=== PATIENT | male | born 1980 | race Two or more races ===

== ENCOUNTER 2020-05-26 11:16 | Outpatient (REF) | payer BC, SELFPAY ==
--- NOTE | 2020-05-26 12:47 | XR_ITS ---
EXAMINATION: CHEST X-RAY CLINICAL INFORMATION: Cough COMPARISON: None TECHNIQUE: Two-view chest FINDINGS: The cardiac and mediastinal contours are normal. The lungs are clear. There is no pleural effusion or pneumothorax. Bony structures are unremarkable. XR/XR chest 2V IMPRESSION: Unremarkable exam. EXAMINATION: Lumbar spine x-ray CLINICAL INFORMATION: Low back pain COMPARISON: None. TECHNIQUE: 5 views of the lumbar spine including bilateral oblique views FINDINGS: Bone alignment is normal. No fracture or dislocation is seen. Disc spaces are normal. There is lower lumbar spine facet arthritis. No pars defect is seen. IMPRESSION: Lower lumbar spine facet arthritis.
--- NOTE | 2020-05-26 12:49 | XR_ITS ---
EXAMINATION: CHEST X-RAY CLINICAL INFORMATION: Cough COMPARISON: None TECHNIQUE: Two-view chest FINDINGS: The cardiac and mediastinal contours are normal. The lungs are clear. There is no pleural effusion or pneumothorax. Bony structures are unremarkable. XR/XR lumbar spine 4V min IMPRESSION: Unremarkable exam. EXAMINATION: Lumbar spine x-ray CLINICAL INFORMATION: Low back pain COMPARISON: None. TECHNIQUE: 5 views of the lumbar spine including bilateral oblique views FINDINGS: Bone alignment is normal. No fracture or dislocation is seen. Disc spaces are normal. There is lower lumbar spine facet arthritis. No pars defect is seen. IMPRESSION: Lower lumbar spine facet arthritis.
== END 2020-05-26 11:17 | disposition home or self-care (01) ==
LOC: HO.XRAY 11:16
PROVIDERS: Absent Provider Internal Medicine; PCP Internal Medicine; Referring Provider Internal Medicine; Visit Provider Internal Medicine
DX: R05 Cough (principal); J45.909 Unspecified asthma, uncomplicated; M54.5 Low back pain; G47.33 Obstructive sleep apnea (adult) (pediatric)
CPT/HCPCS: 71046; 72110

== ENCOUNTER → 2020-06-04 13:51 | Outpatient (REF) | payer BC, SELFPAY | LOC: HO.SL 13:51 | PROVIDERS: PCP Internal Medicine; Visit Provider Internal Medicine | DX: G47.33 Obstructive sleep apnea (adult) (pediatric) (principal) | CPT/HCPCS: 95806 ==

== ENCOUNTER 2020-06-05 15:01 | Outpatient (REF) | payer BC, SELFPAY ==
--- NOTE | 2020-06-05 13:15 | PFT_ITS ---
Forced vital capacity is normal. FEV1 is slightly reduced. KDT84-10 and MVV are moderately reduced. Post bronchodilator therapy, there is a small, but significant improvement in FEV1, SSG71-10, and MVV. Total lung capacity normal. Residual volume slightly increased. Diffusion capacity normal. CONCLUSION: Poap-uc-pczmwsre degree of obstructive airway disorder. Good response to bronchodilator therapy indicates mild bronchial asthma. Clinical correlation recommended. MD RIKKI Llanos/GERMAN / [id number]
== END 2020-06-05 15:02 | disposition home or self-care (01) ==
LOC: HO.RESP 15:01
PROVIDERS: PCP Internal Medicine; Visit Provider Internal Medicine
DX: J45.909 Unspecified asthma, uncomplicated (principal); R05 Cough
CPT/HCPCS: 94060; 94727; 94729

== ENCOUNTER → 2020-07-06 14:34 | Outpatient (BNVA) | payer BC, SELFPAY | PROVIDERS: PCP Internal Medicine; Visit Provider Internal Medicine | DX: Z76.89 Persons encountering health services in other specified circumstances (principal) ==

== ENCOUNTER 2022-04-16 08:54 | Outpatient (REF) | payer BC, SELFPAY ==
[2022-04-16 09:57] LABS: Alanine Aminotransferase 47 U/L (0-40); Albumin Level 4.4 g/dL (3.5-5.0); Alkaline Phosphatase 84 U/L (39-117); Aspartate Amino Transferase 24 U/L (5-37); Bilirubin Direct 0.2 mg/dL (0.0-0.5); Bilirubin Total 0.4 mg/dL (0.0-1.0); Total Protein 6.8 g/dL (6.5-8.0)
== END 2022-04-16 08:55 | disposition home or self-care (01) ==
LOC: HO.LAB 08:54
PROVIDERS: PCP Internal Medicine; Visit Provider Internal Medicine
DX: K76.0 Fatty (change of) liver, not elsewhere classified (principal); A04.8 Other specified bacterial intestinal infections
CPT/HCPCS: 36415; 80076; 87338

== ENCOUNTER 2023-08-28 15:41 | Outpatient (AMB) | payer BC, SELFPAY ==
[2023-08-28 15:48] VITALS: BP 112/78; PULSE 72; O2SAT 98; BMI 38.2
--- NOTE | 2023-08-28 15:48 | A.OFFVIS_ITS ---
Intake Vital Signs 08/28/23 15:48 Height 5 ft 11 in Weight 274 lb BMI 38.2 BP 112/78 Blood Pressure Location Lt brachial Position Sitting Pulse 72 Pulse Source Pulse Oximeter Pulse Oximetry (%) 98 Oxygen Delivery Method Room Air Intake Visit Reasons: asthma Intake Note: pt is here for follow up and doing well, needs refills sent in. 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 and albuterol just as needed. He claims that his asthma is well controlled, only occasional bouts of cough or wheezing, and that is when he has to use albuterol. The other problem is that he has put on some weight. In 2020 he had a home-based sleep study which showed only mild obstructive sleep apnea with total sleep time AHI 13. He had opted to treated with conservative measures including, weight reduction, and sleeping in lateral position. Initially he did lose significant weight and was feeling fine. During the past 1 year he has gained weight . But he still denies symptoms of obstructive sleep apnea. [facility] Medical History (Updated 08/28/23 @ 16:13 by Isi Dan MD) Obesity (BMI 30-39.9) GENNA (obstructive sleep apnea) Acute back pain Cough Asthma Social History Years Smoked: 12 years Review of Systems Const All systems reviewed & are unremarkable except as noted in HPI and below and Other (poor sleep ) ENT Denies nasal congestion and Denies nasal discharge Card Denies chest pain and Denies dyspnea on exertion Resp Denies cough, Denies dyspnea on exertion and Denies wheezing Musc Reports back pain (After driving long distance) Skin/Breast Reports system reviewed and no additional complaints, except as documented Neuro Reports no additional complaints Psych Reports no additional complaints Patrick/Lymph Reports no additional complaints Aller/Immun Reports no additional complaints and Denies wheezing Physical Exam Vital Signs: Last Vital Signs Pulse 72 08/28/23 15:48 BP 112/78 08/28/23 15:48 Pulse Ox 98 08/28/23 15:48 Oxygen Delivery Method Room Air 08/28/23 15:48 BMI result Body Mass Index 38.2 Const General: healthy appearing (modertaely overweight), comfortable, no acute distress, alert and awake Orientation/consciousness: patient oriented x3 HEENT Head: Yes normal to inspection General nose exam: No nasal polyps present and No nasal discharge present Face and sinus: Yes sinuses nontender Mouth: oropharynx normal Throat: Yes posterior oropharynx normal Eyes General: appearance normal, both eyes and all related structures Neck Neck: Yes normal visual inspection, Yes no lymphadenopathy, Yes trachea midline and Yes no JVD Thyroid: Thyroid normal Chest Chest palpation & inspection: normal inspection of the chest, normal palpation of entire chest wall and no tenderness Resp Effort & Inspection: normal respiratory effort Auscultation: clear to auscultation bilaterally, no crackles, no rhonchi and no wheezes Cardio Palpation: normal PMI Rate: regular rate Rhythm: regular rhythm Heart sounds: no gallops and no murmurs Peripheral pulses: Peripheral pulses 2+ throughout GI Palpation (GI): Soft to palpation, nontender, No hepatosplenomegaly present and no masses Auscultation: normal bowel sounds Back/Spine/Pelvis Thoracic/Lumbar Spine: thoracic and lumbar spine normal to inspection Skin General skin exam: no rashes or lesions noted Neuro General: patient oriented x3 and no focal motor deficits Cranial nerves: Yes CN's II-XII intact bilaterally Extrem General: Yes normal to inspection, Yes no clubbing, cyanosis or edema, Yes no calf tenderness and No venous stasis dermatitis Psych Appearance: grossly normal Speech and movement: Normal speech and movement present Assessment & Plan Assessment & Plan (1) Asthma: Comment: As per pulmonary function test he does have evidence of bronchial asthma, but mild. He did have to use Flovent as a controller agent, And he uses albuterol only once in a while. Code(s): J45.909 - Unspecified asthma, uncomplicated Plan: Advised to keep on using Flovent-1102 puffs b.i.d., or an equivalent agent, as Flovent is not available. Use albuterol HFA 2 puffs Q 4-6 hours only p.r.n.. (2) Obesity (BMI 30-39.9): Comment: Patient has gained about 30 lb of weight since last year, he is grossly. Obese at this time. But he denies symptoms of obstructive sleep apnea. Code(s): E66.9 - Obesity, unspecified Plan: Had a long discussion about the weight issue. He is fully determined to lose weight. I will check him back in 3-4 months to make sure that he is making good progress. (3) GENNA (obstructive sleep apnea): Comment: Home sleep study on 06/04/2020 did confirm that he has obstructive sleep apnea with total sleep time AHI 13 (mild ) Patient had opted to treat by conservative measures. As per his last visit 1 year ago he had lost. 18 lb of weight Unfortunately during the past 1 year he has gained weight again. Still denies symptoms of sleep apnea. Code(s): G47.33 - Obstructive sleep apnea (adult) (pediatric) Plan: I have given him a challenge of losing weight and he would come back in about 3- 4 months to to show the progress. Coding Level of Care Code Est Pt Level 3 (72136) Diagnoses Asthma J45.909 Obesity (BMI 30-39.9) E66.9 GENNA (obstructive sleep apnea) G47.33
== END 2023-08-28 16:07 | disposition home or self-care (01) ==
PROVIDERS: PCP Internal Medicine; Visit Provider Internal Medicine
DX: J45.909 Unspecified asthma, uncomplicated (principal); E66.9 Obesity, unspecified; G47.33 Obstructive sleep apnea (adult) (pediatric)
CPT/HCPCS: 99213

== ENCOUNTER → 2023-08-28 15:41 | Outpatient (BNVA) | payer BC, SELFPAY | PROVIDERS: PCP Internal Medicine; Visit Provider Internal Medicine ==

== ENCOUNTER 2024-06-05 09:11 | Outpatient (REF) | payer BC, SELFPAY ==
[2024-06-05 10:52] LABS: MANUAL DIFF FLAG NO
[2024-06-05 11:00] LABS: Basophils Percent Auto 0.6 % (0-2); Eosinophils Absolute Auto 0.3 X10*3/uL (0.0-0.4); Eosinophils Percent Auto 5.1 % (0-4); Hematocrit 48.4 % (42.0-52.0); Hemoglobin 15.7 g/dl (14.0-18.0); Imm Gran Abs Auto 0.03 X10*3/uL (0.00-0.03); Imm Gran Pct Auto 0.6 % (0.0-0.4); Lymphocytes Absolute Auto 1.6 X10*3/uL (1.2-4.9); Lymphocytes Percent Auto 30.3 % (20-40); Mean Corpuscular HGB Conc 32.4 g/dl (31.0-36.0); Mean Corpuscular Hemoglobin 26.9 pg (27.0-33.0); Monocytes Absolute Auto 0.4 X10*3/uL (0.1-1.2); Monocytes Percent Auto 8.3 % (2-11); Neutrophils Absolute Auto 2.9 x10*3/uL (2.0-8.3); Neutrophils Percent Auto 55.1 % (45-73); Platelet Count 216 X10*3/uL (160-400); Red Blood Count 5.83 X10*6/uL (4.60-5.80); Red Cell Distribution Width 12.6 % (11.0-16.0); White Blood Count 5.3 X10*3/uL (4.8-10.8)
[2024-06-05 11:14] LABS: Estimated Average Glucose 114 mg/dL; Hemoglobin A1C 157.2941 umol/L; Hemoglobin A1c % 5.6 % (<6.0); Total Hemoglobin (HGBA1C) 4125.5484 umol/L
[2024-06-05 11:24] LABS: Alanine Aminotransferase 31 U/L (0-40); Albumin Level 4.3 g/dL (3.5-5.0); Alkaline Phosphatase 74 U/L (39-117); Anion Gap 12 (12-20); Aspartate Amino Transferase 20 U/L (5-37); Bilirubin Total 0.4 mg/dL (0.0-1.0); Blood Urea Nitrogen 14 mg/dL (9-16); Calcium 9.2 mg/dL (8.4-10.2); Carbon Dioxide 31 mmol/L (22-29); Chloride 102 mmol/L (96-108); Cholesterol 177 mg/dL (<200); Estimated Glomerular Filt Rate > 60; Glucose Random 109 mg/dL (60-115); HDL Cholesterol 49 mg/dL (>40); LDL Cholesterol Calculated 107 mg/dL (<100); Potassium 4.4 mmol/L (3.3-5.1); Sodium 141 mmol/L (135-145); Total Protein 7.1 g/dL (6.5-8.0); Triglycerides 106 mg/dL (<150)
[2024-06-05 11:49] LABS: TSH reflex Free T4 0.92 uIU/mL (0.32-4.0); Vitamin D 25-OH Total 33.4 ng/mL (>30)
[2024-06-05 12:13] LABS: HIV AB/AG Nonreactive (Nonreactive); HIV Num 1 0.06 S/CO (0.00-0.99); ~HepC Num1 0.12 S/CO (0.00-0.79); ~Hepatitis C Antibody Nonreactive (Nonreactive)
== END 2024-06-05 09:12 | disposition home or self-care (01) ==
LOC: HO.HHCL 09:11
PROVIDERS: Visit Provider Internal Medicine
DX: Z00.00 Encounter for general adult medical examination without abnormal findings (principal); Z13.6 Encounter for screening for cardiovascular disorders; Z13.1 Encounter for screening for diabetes mellitus
CPT/HCPCS: 36415; 80053; 80061; 82306; 83036; 84443; 85025; 86803; 87389

== ENCOUNTER 2025-03-12 13:04 | Outpatient (REF) | payer MEDICAID, SELFPAY ==
--- OUTSIDE RECORDS SUMMARY | 2025-03-12 13:58 | XMS_ITS | Clinical Summary ---
Author Organization [facility] Address [address] [place] [address] Care Team Providers Care Packaging Supervisor Name Role Phone Ulises Platt Primary Care Provider [phone] Source Comments PLEASE NOTE, if this patient is a minor, it may be UNLAWFUL to discuss sensitive information that is contained in these records (such as FAMILY PLANNING, MENTAL HEALTH or SUBSTANCE ABUSE) with the minor patient's parent or other person without the patient's specific authorization.[facility] Allergies No known active allergies Medications spacerIndications :Expiratory wheezing Dx: 786.07. For use with albuterol inhaler 1 Inhaler 0 5 Active OPTICHAMBER FRANCI damaso 0 5 Active COMP.STOCKING,KNE E,LONG,LARGE (COMPRESSION STOCKING)Indicati ons:Varicose veins Dx:454.9 Wear daily for varicose veins. indefinite need 2 Each 2 5 Active sodium chloride (OCEAN) 0.65 % nasal sprayIndications: Expiratory wheezing,Common cold Place 1 Kirby into the nostril(s) as needed for congestion. 60 mL 6 5 Active fluticasone (FLOVENT HFA) 110 mcg/actuation inhalerIndication s:Mild persistent asthma without complication ([facility]) Inhale 2 Puffs into the lungs 2 (two) times daily. 1 Inhaler 5 6 Active albuterol sulfate hfa 90 mcg/actuation inhaler Inhale 2 Puffs into the lungs every 4 (four) hours as needed for shortness of breath or wheezing. 18 g 0 6 Active albuterol sulfate 90 mcg/actuation inhaler Active fluticasone propionate (FLOVENT DISKUS) 100 mcg/actuation diskus inhaler Activ e Active Problems Problem Noted Date Diagnosed Date Chronic pain of left knee 11/17/2014 Overview (10/08/2018): Tramatic injury 2017 - Closely followed by [facility] Chronic left hip pain 11/17/2014 [address]hma ([facility]) 10/14/2014 Family History Medical History Relation Name Comments Diabetes Father Hypertension Mother Relation Name Status Comments Father Mother Social History Tobacco Use Types Packs/Day Years Used Date Smoking Tobacco: Former Cigarettes 0.5 5 Smokeless Tobacco: Former Quit: 04/23/2015 Tobacco Cessation:Ready to Q uit: Yes; Counseling Given: Yes Alcohol Use Standard Drinks/Week Comments No 0 (1 standard drink = 0.6 oz pur e alcohol) Occassionally Social Connections Answer Date Recorded Social Connections and Isolation 0 03/17/2019 Financial Resource Strain Answer Date R ecorded Financial Resource Strain 0 2018 Stress Answer Date Recorded Stress 0 03/17/2019 Physical Activity Answer Date Recorded Physical Activity 0 03/17/2019 Food Insecurity Answer Date Recorded Food 0 03/17/2019 Transportation Needs Answer Date Record ed Transportation 0 03/17/2019 Housing Stability Answer Date Recorded Housing 0 03/17/2019 Safety and Environment Answer Date Shiva rded Safety 0 03/17/2019 Utilities Answer Date Recorded Utilities 0 03/17/2019 Employment Answer Date Recorded Employment 0 03/17/2019 Sex and Gender Information Value Date Recorded Sex Assigned at Not on file Legal Sex Male 6:06 AM PDT Gender Identity Not on file Sexual Orientation Not on file 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 on file Not on file Not on file Last Filed Vital Signs Vital Sign Reading Time Taken Comments Blood Pressure 118/80 05/03/2016 4:33 PM EDT Pulse 80 05/03/2016 4:33 PM EDT Temperature 37.2 C (98.9 F) 05/03/2016 4:33 PM EDT Respiratory Rate 16 05/03/2016 4:33 PM EDT Oxygen Saturation - - Inhaled Oxygen Concentration - - Weight 112.5 kg (248 lb) 05/03/2016 4:33 PM EDT Height 180.3 cm (5' 11 ) 07/04/2015 12:45 PM EST Body Mass Index 34.59 07/04/2015 12:45 PM EST Plan of Treatment Health Maintenance Due Date Last Done Comments Anxiety Screening 1980 Hepatitis C Screening 1980 Tobacco Screening 1980 HIV Screening 1995 Imm-DTaP/Tdap/Td (1 - Tdap) 1999 Imm-Hepatitis B (1 of 3 - 19 + 3-dose series) 1999 Imm-Pneumococcal (1 of 2 - PCV) 1999 Hypertension Screening (#1) 05/03/2017 10/14/2014 Diabetes Screening 04/29/2019 04/29/2016, 1 , 10/28/2014, Additional history exists Lipid Screening 10/29/2019 10/28/2014 [id number] ( season) 2024 Alcohol and Drug Screen 07/24/2024 10/14/2014 Depression Annual Screen 07/24/2024 10/14/2014 Imm-Influenza (#1) 2025 10/14/2014 Procedures Procedure Name Priority Date/Time Associated Diagnosis Comments HEMOGLOBIN GLYCOSYLATED A1C Routine 04/29/2016 4:15 PM EDT Elevated fasting glucose LIPID PANEL Routine 10/28/2014 10:00 AM EDT Routine general medical examination at a health care facility from Last 3 Months or Most Recently Relevant to Health Maintenance Results * HEMOGLOBIN, GLYCOSYLATED (A1C) (04/29/2016 4:15 PM EDT) GLYCATED HEMOGLOBIN A1C 5.7 <6.5 % [facility] ESTIMATED AVERAGE GLUCOSE 117 mg/dL [facility] Blood specimen (specimen) Blood / Unknown 04/29/2016 4:15 PM EDT 04/29/2016 4:21 PM EDT Narrative [facility] - 04/29/2016 9:04 PM EDT Sociall [address] [place] [address] PT ID [id number] ORD# [id number] us Jacqui Cornejo DNP LAB - BLOOD DRAW Final Resu lt [facility] [address] [place] [address], [place] [phone] * (ABNORMAL) LIPID PANEL (10/28/2014 10:00 AM EDT) CHOLESTEROL 151 0 - 200 mg/dL [facility] TRIGLYCERIDES 97 0 - 150 mg/dL [facility] HDL CHOLESTEROL 34(L) >40 mg/dL [facility] LDL CALCULATED 98 0 - 100 mg/dL [facility] TC-HDLC RATIO 4.4 0 - 4.4 mg/dL [facility] Blood specimen (specimen) Blood / Unknown 10/28/2014 10:00 AM EDT 10/28/2014 10:00 AM EDT Narrative [facility] - 10/28/2014 4:57 PM EDT [address] [place] [address] PT ID [id number] ORD# [id number] Jacqui Cornejo [facility] - BLOOD DRAW Edited Res ult - Final [facility] [address] [place] [address], [place] [phone] from Last 3 Months or Most Recently Relevant to Health Maintenance Insurance [place] MEDICAID Care Teams Packaging Supervisor Relationship Specialty Start Date End Date Ulises Platt PA [address] [place] [address] PCP - General Internal Medicine 06/01/17
--- OUTSIDE RECORDS SUMMARY | 2025-03-12 13:59 | XMS_ITS | Patient Health Record ---
Author Organization [facility] Address [address] [facility], [place] [address] Care Team Providers Care Bareback Rider Name Role Phone Dior Wilkins Primary Care Provider ROSELYN Hallman Unavailable [phone] Allergies No Known Allergies Reason For Referral No Information Medications Medication SIG (Take, Route, Frequency, Duration) Notes Start Date End Date Status Albuterol Active Problems Problem Type SNOMED Code ICD Code Onset Dates Problem Status W/U Status Risk Notes Problem Varicose veins of bilateral lower limbs ([id number] 06) Varicose veins of both legs with edema (I83.893) Active confirmed Problem Leg length discrepancy ([id number]) Leg length discrepancy (M21.70) Active confirmed Plan Of Treatment Pending Test Test Name Order Date EMG/NCV ARMS 07/29/2021 X ray : Foot, left 3v 07/29/2021 X ray : Foot, right 3v 07/29/2021 Insurance Providers Payer Name Payer Address Payer Phone Subscriber Number Group Number Insured Name Patient Relationship to Insured Coverage Start Date Coverage End Date [employer] [facility] [address] [place] [address] [phone] [id number] Lita Louis Self - patient is the insured Medical (General) History Medical History History ICD Code asthma left leg surgery X 2 lower back surgery 1996 Surgical History Surgery Date(Month/Year) left leg surgery X 2 1995 lower back surgery 1996
--- OUTSIDE RECORDS SUMMARY | 2025-03-12 13:59 | XMS_ITS | Clinical Summary ---
Author Organization [facility] Address [address] [place] [address] Care Team Providers Care Hairspring Truer Name Role Phone Pcp, No Primary Care Provider Unavailabl e Allergies No known active allergies Medications albuterol (PROVENTIL HFA; VENTOLIN HFA) 108 (90 Base) MCG/ACT inhaler Active fluticasone (Flovent Diskus) 100 MCG/BLIST diskus inhaler Activ e Family History Medical History Relation Name Comments Liver cancer Maternal Grandmother Cancer Neg Hx Cancer, Bladder Neg Hx Cancer, Kidney Neg Hx Cancer, Prostate Neg Hx Relation Name Status Comments Maternal Grandmother Social History Tobacco Use Types Packs/Day Years Used Date Smoking Tobacco: Never Smokeless Tobacco: Never Sex and Gender Information Value Date Recorded Sex Assigned at Not on file Legal Sex Male 12:54 PM EDT Gender Identity Not on file Sexual Orientation Not on file Last Filed Vital Signs Vital Sign Reading Time Taken Comments Blood Pressure - - Pulse - - Temperature - - Respiratory Rate - - Oxygen Saturation - - Inhaled Oxygen Concentration - - Weight 111 kg (244 lb) 04/18/2022 9:36 AM EDT pe r pt Height 180.3 cm (5' 11 ) 04/18/2022 9:36 AM EDT per pt Body Mass Index 34.03 04/18/2022 9:36 AM EDT Plan of Treatment Health Maintenance Due Date Last Done Comments Hepatitis C Virus Screening 1980 HIV Screening 1993 DTaP/Tdap/Td Vaccines (1 - Tdap) 1999 Hepatitis B Vaccines (1 of 3 - 19+ 3-dose series) 1999 HPV Vaccines (1 - 3-dose SCD M series) 2007 COVID-19 Vaccine (2023-2 5 season) 2024 Influenza Vaccine 02/21/2025 Pneumococcal Vaccine: Pediat aquiles (0-5 Years) and At-Risk Patients (6 to 49 Years) Aged Out No longer eligible b ased on patient's age to complete this topic Insurance [facility] OUT [facility] STATE - PPO Care Teams Hairspring Truer Relationship Specialty Start Date End Date Pcp, No PCP - General General Medicine 02/09/22
--- OUTSIDE RECORDS SUMMARY | 2025-03-12 13:59 | XMS_ITS | Clinical Summary ---
Author Organization [employer] Address [address] [place] [address] [address] [place] [address] Care Team Providers Care Family Advocate Name Role Phone Dior Saunders MD Primary Care Provide r Allergies No known active allergies Medications phentermine 15 MG capsuleIndicatio ns:Class 2 severe obesity due to excess calories with serious comorbidity and body mass index (BMI) of 36.0 to 36.9 in adult (CMS/HCC) Take 1 capsule (15 mg) by mouth before breakfast. 30 capsule 1 10/23/2024 Active topiramate (Topamax) 25 MG tabletIndication s:Class 2 severe obesity due to excess calories with serious comorbidity and body mass index (BMI) of 36.0 to 36.9 in adult ([facility]) Take 1 tablet (25 mg) by mouth Once per day. 30 tablet 2 10/23/2024 10/24/19 26 Active gabapentin (Neurontin) 100 MG capsule Take 1 capsule (100 mg) by mouth at bedtime for 10 days. 10 capsule 12/18/2024 Active Active Problems Problem Noted Date Diagnosed Date Class 2 severe obesity due t o excess calories with serious comorbidity and body mass index (BMI) of 36.0 to 36.9 in adult 10/23/2024 Assessment & Plan (10/23/2024 3:33 PM EDT): Extensive counseling about healthy diet and exercise done today I will start patient on phentermine 50 mg daily and topiramate 25 mg daily I will follow-up with patient in 4 to 6 weeks Diminished hearing, left 10/23/2024 Ringing in ear, left 10/23/2024 Acute otitis media 10/23/2024 Encounter for preventive care 06/04/2024 Chronic midline low back pain without sciatica 1 08/04/2023 Assessment & Plan (06/04/2024 10:57 AM EST): Apply heat on affected area Acetaminophen PRN Gentle stretching and weight reduction Hematuria 04/15/2024 Assessment & Plan (04/15/2024 1:04 PM EDT): UA today Letter for work will be generated Urology referral Pain in the coccyx 07/03/2023 07/03/2023 Chronic thoracic back pain 07/03/202307/03 Constipation 07/03/2023 07/03/2023 H. pylori infection 07/03/2023 07/03/2023 Steatosis of liver 07/03/2023 07/03/2023 Vascular insufficiency 07/03/2023 Asthma 10/14/2014 07/03/2023 Assessment & Plan (10/23/2024 3:33 PM EDT): Educated to avoid triggers Continue with same interventions Encounters Date Type Department Care Team Description 03/03/2025 Telephone [facility] [address] [place] [phone] Dior Saunders MD Results 12/18/2024 11:00 AM EDT Office Visit [facility] [address] [place] [phone] Name, MD Malachi Herpes zoster with complication (Primary Dx); Acute pain associated with herpes zoster 12/18/2024 Telephone [facility] [address] [place] [phone] Dior Saunders MD Chart Prep 12/18/2024 Telephone [facility] [address] [place] [phone] Doir Saunders MD Nurse Triage from Last 3 Months Immunizations Immunization Administration Dates Next Due Hep A, Adult 12/02/2017 Influenza injectable quadrivalent preservative f ree 04/18/2022,05/22/2020 Social History Tobacco Use Types Packs/Day Years Used Date Smoking Tobacco: Never Passive Smoke Exposure: Never Smokeless Tobacco: Never Tobacco Cessation:Counseling Given: Not Answered Alcohol Use Standard Drinks/Week Comments Never 0 (1 standard drink = 0.6 oz pur e alcohol) Depression Answer Date Recorded Patient Health Questionnaire-9 Score 0 04/15/2024 Patient Health Questionnaire-9 Score 0 04/15/2024 Last PHQ-9: Questionnaire Data Not on file 0 04/15/2024 Housing Stability Answer Date Recorded What is your housing situation today? I have michael neff 10/16/[address] you li ve. Do you have problems with any of the following? None of the above 10/16/2024 Food Insecurity Answer Date Recorded Within the past 12 months, y ou worried that your food would run out before you got money to buy more: Never True 04/15/2024 Within the past 12 months,th e food you bought just didn't last and you didn't have enough money to get more: Never True Transportation Answer Date Recorded In the past 12 months, has l ack of transportation kept you from medical appts, meetings, work or from getting things needed for daily living? No 04/15/2024 Utilities Answer Date Recorded In the past 12 months, has t he electric, gas, oil or water company threatened to shut off services in your home? No 04/15/2024 Depression Answer Date Recorded Patient Health Questionnaire-2 Score 0 04/15/2024 Internet Access Answer Date Recorded Internet Access Q1 Yes 10/16/2024 Internet Access Q2 I do not want or need it 09/22 Sex and Gender Information Value Date Recorded Sex Assigned at Male 05/23/2022 10:25 AM EDT Legal Sex Male 10:25 AM EDT Gender Identity Male 05/23/2022 10:25 AM EDT Sexual Orientation Don't know 05/23/2022 10 :25 AM EDT Last Filed Vital Signs Vital Sign Reading Time Taken Comments Blood Pressure 135/81 12/18/2024 10:38 AM EDT Pulse 74 12/18/2024 10:38 AM EDT Temperature 36.3 C (97.3 F) 12/18/2024 10:38 AM EDT Respiratory Rate 17 12/18/2024 10:38 AM EDT Oxygen Saturation 97% 12/18/2024 10:38 AM EDT Inhaled Oxygen Concentration - - Weight 125 kg (275 lb 6.4 oz) 12/18/2024 10:38 A M EDT Height 186 cm (6' 1.23 ) 10/23/2024 11:20 AM EDT Body Mass Index 36.11 10/23/2024 11:20 AM EDT Plan of Treatment Health Maintenance Due Date Last Done Comments Disability Screening 1980 Family Planning (PISQ) 1995 HPV Vaccines (1 - Male 3-dos e series) 1995 DTaP/Tdap/Td Vaccines (1 - Tdap) 1999 Hepatitis B Vaccines (1 of 3 - 19+ 3-dose series) 1999 Pneumococcal Vaccine: Pediatrics (0 to 5 Years) and At-Risk Patients (6 to 49) Years (1 of 2 - PCV) 1999 Hepatitis A Vaccines (2 of 2 - Risk 2-dose series) 06/04/2018 12/02/2017 COVID-19 Vaccine (3 - 2023-2 5 season) 2024 11/28/2020, 11/07/2020 Influenza Vaccine (#1) 2025 , 05/22/2020 Alcohol/Substance Use Screening 04/15/2025 04/15/2024 Depression Screening 04/15/2025 04/15/2024, 04/15/2024 SDOH Screening 10/16/2025 10/16/2024 Tobacco Screening 10/23/2025 10/23/2024 Lipid Panel 06/05/2029 06/05/2024, 11/29/2021, 04/10/2020 Zoster Vaccines (1 of 2) 2030 RSV Patients and Patients Aged 60 years or older (1 - 1-dose 75+ series) 2055 HIV Screening Completed 06/05/2024, 04/10/2020 Hepatitis C Screening Completed 06/05/2024 HIB Vaccines Aged Out No longer eligi ble based on patient's age to complete this topic IPV Vaccines Aged Out No longer eligi ble based on patient's age to complete this topic Meningococcal B Vaccine Aged Out No l onger eligible based on patient's age to complete this topic Meningococcal Vaccine Aged Out No emilia carter eligible based on patient's age to complete this topic RSV under 20 months Aged Out No longe r eligible based on patient's age to complete this topic Rotavirus Vaccines Aged Out No longer eligible based on patient's age to complete this topic Procedures Procedure Name Priority Date/Time Associated Diagnosis Comments HEPATITIS C AB W/REFL TO HCV RNA, QN, PCR Routine 06/05/2024 9:15 AM EST Encounter for preventive care HIV 1/2 ANTIGEN/ANTIBODY, FOURTH GENERATION W/RFL Routine 06/05/2024 9:15 AM EST Encounter for preventive care LIPID PANEL, STANDARD Routine 06/05/2024 9:15 AM EST Encounter for preventive care from Last 3 Months or Most Recently Relevant to Health Maintenance Results * Hepatitis C Antibody with Reflex to HCV, RNA, Quantitative, Real-Time PCR (06/05/2024 9:15 AM EST) Hepatitis C Antibody Nonreactive Nonreactive [facility] Comment:Antibodies to HCV no t detected; does not exclude early acuteHCV infection. Blood Venous blood specimen / Unknown 06/05/2024 9:15 AM EST 06/05/2024 10:46 AM EST us Dior Raza MD LAB BLOOD ORDERABLES Final Result [facility] [address] [place] [phone] * HIV-1/2 Antigen and Antibodies, Fourth Generation, with Reflexes (06/05/2024 9:15 AM EST) HIV AB/AG Nonreactive Nonreactive [facility] Comment:HIV-1 p24 Ag and/or HIV-1/HIV-2 Ab not detected.A test result that is nonreactive does not exclude thepossibility of exposure to or infection with HIV-1 and/orHIV-2. Nonreactive results in this assay for individualswith prior exposure to HIV-1 and/or HIV-2 may be due toantigen and antibody levels that are below the limit ofdetection of this assay.The Storwize HIV Ag/Ab Combo assay result andsupplemental assay results should be interpreted inconjunction with the patient's clinical presentation,history and other laboratory results. If the results areinconsistent with clinical evidence, additional testing issuggested to confirm the result. Blood Venous blood specimen / Unknown 06/05/2024 9:15 AM EST 06/05/2024 10:46 AM EST us Dior Raza MD LAB BLOOD ORDERABLES Final Result [facility] [address] [place] [address] [phone] * (ABNORMAL) Lipid Panel, Standard (06/05/2024 9:15 AM EST) Triglycerides 106 <150 mg/dL [facility] Comment:Desirable Triglyceri de: less than 150 mg/dLBorderline High Triglyceride 150-199 mg/dLHigh Triglyceride: 200-499 mg/dLVery High Triglyceride: greater than or equal to 5OO mg/dL Cholesterol 177 <200 mg/dL [facility] Comment:Desirable Cholestero l: less than 200 mg/dLBorderline High Cholesterol: 200-239 mg/dLHigh Cholesterol: greater than 239 mg/dL LDL Cholesterol Calculated 107(H) <100 mg/dL [facility] Comment:Desirable LDL: less than 100 mg/dLNear Optimal/Above Optimal LDL: 110- 129 mg/dLBorderline High LDL: 130-159 mg/dLHigh LDL: 160-189 mg/dLVery High LDL: greater than or equal to 190 mg/dL HDL Cholesterol 49 >40 mg/dL [facility] Comment:Desirable HDL: great er than 40 mg/dL Note: This HDL assay may give artificially low results in patients with liver disease. Blood Venous blood specimen / Unknown 06/05/2024 9:15 AM EST 06/05/2024 10:46 AM EST Dior Raza MD LAB BLOOD ORDERABLES Final Result [facility] [address] [place] [phone] from Last 3 Months or Most Recently Relevant to Health Maintenance Insurance [facility] C3 Care Teams Family Advocate Relationship Specialty Start Date End Date Dior Saunders MD [address] [place] [phone] PCP - General Family Medicine 04/08/20
== END 2025-03-12 13:05 | disposition home or self-care (01) ==
LOC: HO.SH 13:04
PROVIDERS: Visit Provider Internal Medicine
DX: Z01.118 Encounter for examination of ears and hearing with other abnormal findings (principal); H90.12 Conductive hearing loss, unilateral, left ear, with unrestricted hearing on the contralateral side
CPT/HCPCS: 92557; 92567

== ENCOUNTER 2025-04-09 17:23 | Outpatient (REF) | payer MEDICAID, SELFPAY ==
--- OUTSIDE RECORDS SUMMARY | 2025-04-09 10:20 | XMS_ITS | Encounter Summary ---
Author Organization [employer] Address [address] [facility] [address] [place] [address] Care Team Providers Care Psychology Instructor Name Role Phone Dior Saunders MD Primary Care Provide r Reason for Visit * Reason Comments Earache Encounter Details Date Type Department Care Team ([facility] st Contact Info) Description 04/09/2025 10:20 AM EDT Office Visit [facility] [address] [place], [place] [id number] Zack Ornelas MD [address] [place] [address] Acute suppurative otitis media of left ear with spontaneous rupture of tympanic membrane, recurrence not specified (Primary Dx) Social History Tobacco Use Types Packs/Day Years Used Date Smoking Tobacco: Some Days Cigarettes Passive Smoke Exposure: Never Smokeless Tobacco: Never Tobacco Cessation:Ready to Q uit: Not Asked; Counseling Given: Not Answered Alcohol Use Standard Drinks/Week [...] Don't know 05/23/2022 10 :25 AM EDT documented as of this encounter Last Filed Vital Signs Vital Sign Reading Time Taken Comments Blood Pressure 143/91 04/09/2025 10:58 AM EDT Pulse 67 04/09/2025 10:58 AM EDT Temperature 36.4 C (97.6 F) 04/09/2025 10:58 AM EDT Respiratory Rate 17 04/09/2025 10:58 AM EDT Oxygen Saturation 98% 04/09/2025 10:58 AM EDT Inhaled Oxygen Concentration - - Weight 125 kg (276 lb) 04/09/2025 10:58 AM EDT Height - - Body Mass Index 36.19 10/23/2024 11:20 AM EDT documented in this encounter Progress Notes * Zack Ornelas MD - 04/09/2025 10:20 AM EDT Subjective Patient ID: Lita Louis is a 44 y.o. male. HPI Lita returns to [facility] today because of persistent left ear pain with yellow discharge, decreased hearing, tinnitus. [place] course of amoxicllin prescribed in [facility] 04/03. Taking Tylenol which helps a little. From walk-in clinic office note from 911: Has past medical history of tinnitus, previous OM, obesity, steatosis of liver, and asthma who presents for evaluation of ear pain and decreased hearing to the left ear. Onset of symptoms was gradual, with recent worsening. No additional symptoms. Associated negative symptoms include fever, runny nose, congestion, discharge, and recent swimming. [facility] 03/12/25 Audiogram: Otoscopy clear Ad, possible TM perf visualized As. Tympanograms reveal slight hyper compliance Ad, flat with large ECV As. Pure tone thresholds within normal to 4kHz sloping to mild to moderate high frequency hearing loss Ad, thresholds borderline normal to mild gradually sloping to serve conductive hearing loss As. Recommended: ENT consult due to conductive hearing loss As, possible TM perforation. Has [facility]NT yenifer't 05/02/2025 Found to have injected and perforated left TM on exam 04/03. Prescribed amoxicillin. Lives with and 2 children. 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 Smokes 1-2 cigarettes/week. Patient Active Problem List Diagnosis Date Noted Class 2 severe obesity due to excess calories with serious comorbidity and body mass index (BMI) of36.0 to 36.9 in adult ([facility]) 10/23/2024 Diminished hearing, left 10/23/2024 Ringing in ear, left 10/23/2024 Acute otitis media 10/23/2024 Encounter for preventive care 06/04/2024 Chronic midline low back pain without sciatica 06/04/2024 Hematuria 04/15/2024 Pain in the coccyx 07/03/2023 Chronic thoracic back pain 07/03/2023 Constipation 07/03/2023 H. pylori infection 07/03/2023 Steatosis of liver 07/03/2023 Vascular insufficiency 07/03/2023 Asthma 10/14/2014 The following portions of the chart were reviewed this encounter and updated as appropriate: Review of Systems Constitutional: Negative for fever. HENT: Positive for ear discharge, ear pain and tinnitus. Respiratory: Negative for shortness of breath. Cardiovascular: Negative for chest pain. Gastrointestinal: Negative for abdominal pain. Skin: Negative for rash. Neurological: Negative for headaches. Objective Physical Exam Constitutional: Appearance: Normal appearance. HENT: Right Ear: Tympanic membrane, ear canal and external ear normal. Left Ear: External ear normal. Drainage present. Tympanic membrane is perforated and erythematous. Nose: Nose normal. Eyes: Conjunctiva/sclera: Conjunctivae normal. Pupils: Pupils are equal, round, and reactive to light. Cardiovascular: Rate and Rhythm: Normal rate and regular rhythm. Heart sounds: No murmur heard. Pulmonary: Effort: Pulmonary effort is normal. Breath sounds: Normal breath sounds. Musculoskeletal: General: Normal range of motion. Cervical back: No tenderness. Skin: Findings: No rash. Neurological: Mental Status: He is alert. Gait: Gait is intact. Psychiatric: Mood and Affect: Mood normal. Behavior: Behavior normal. Procedures Assessment/Plan Diagnoses and all orders for this visit: Acute suppurative otitis media of left ear with spontaneous rupture of tympanic membrane, recurrence not specified Prescribed Augmentin, ofloxacin eardrops, ibuprofen, gave patient cotton balls to coat with Vaseline and used to plug left ear when taking a shower. Keep appointment with [facility]NT on May 02. Return to clinic prior to ENT appointment if not improving. - Wound culture Other orders - ibuprofen 400 MG tablet; Take 1 tablet (400 mg) by mouth every 6 (six) hours if needed for moderate pain or fever for up to 30 doses. - ofloxacin (Floxin) 0.3 % otic solution; Administer 10 drops into the left ear Once per day for 7 days. - amoxicillin-clavulanate XR (Augmentin XR) 1000-62.5 MG 12 hr tablet; Take 2 tablets by mouth 2 times daily for 10 days. documented in this encounter Plan of Treatment Scheduled Orders Name Type Priority Associated Diagnoses Orde r Schedule Wound culture Microbiology Routine Acute suppurative otitis media of left ear with spontaneous rupture of tympanic membrane, recurrence not specified Ordered: 04/09/2025 documented as of this encounter Visit Diagnoses Diagnosis Acute suppurative otitis media of left ear with spontaneous rupture of tympanic membrane, recurrence not specified- Primary documented in this encounter Additional Health Concerns Assessment Noted Time PHQ-9 Depression Total Score: 0 04/15/20 24 9:15 AM EDT documented as of this encounter Care Teams Psychology Instructor Relationship Specialty Start Date End Date Dior Saunders MD [address] [place] [phone] PCP - General Family Medicine 04/08/20 documented as of this encounter
--- OUTSIDE RECORDS SUMMARY | 2025-04-09 19:26 | XMS_ITS | Patient Health Record ---
Author Organization [employer] Address [address] [facility] [address] [facility] [place] [address] Care Team Providers Care Carder Blankets Name Role Phone Dior Wilkins Primary Care Provider ROSELYN Hallman Unavailable [phone] Allergies No Known Allergies Reason For Referral No Information Medications Medication SIG (Take, Route, Frequency, Duration) Notes Start Date End Date Status Albuterol Active Problems Problem Type SNOMED Code ICD Code Onset Dates Problem Status W/U Status Risk Notes Problem Varicose veins of bilateral lower limbs (078373539179416 06) Varicose veins of both legs with edema (I83.893) Active confirmed Problem Leg length discrepancy (164136784) Leg length discrepancy (M21.70) Active confirmed Plan Of Treatment Pending Test Test Name Order Date EMG/NCV ARMS 07/29/2021 X ray : Foot, left 3v 07/29/2021 X ray : Foot, right 3v 07/29/2021 Insurance Providers Payer Name Payer Address Payer Phone Subscriber Number Group Number Insured Name Patient Relationship to Insured Coverage Start Date Coverage End Date [employer] [place] [employer] [facility] [address] [place] [phone] [id number] Lita Louis Self - patient is the insured Medical (General) History Medical History History ICD Code asthma left leg surgery X 2 lower back surgery 1996 Surgical History Surgery Date(Month/Year) left leg surgery X 2 1995 lower back surgery 1996
--- OUTSIDE RECORDS SUMMARY | 2025-04-09 19:26 | XMS_ITS | Clinical Summary ---
Author Organization [employer] Address [address] [place] [address] 7t [place] [address] Care Team Providers Care Licensed Loan Officer Name Role Phone Dior Saunders MD Primary Care Provide r Allergies No known active allergies Medications phentermine 15 MG capsuleIndicatio ns:Class 2 severe obesity due to excess calories with serious comorbidity and body mass index (BMI) of 36.0 to 36.9 in adult (CMS/[facility]) Take 1 capsule (15 mg) by mouth before breakfast. 30 capsule 1 5 Active topiramate (Topamax) 25 MG tabletIndication s:Class 2 severe obesity due to excess calories with serious comorbidity and body mass index (BMI) of 36.0 to 36.9 in adult ([facility]) Take 1 tablet (25 mg) by mouth Once per day. 30 tablet 2 5 10/24/19 26 Active gabapentin (Neurontin) 100 MG capsule Take 1 capsule (100 mg) by mouth at bedtime for 10 days. 10 capsule 5 Active amoxicillin (Amoxil) 500 MG capsule Take 1 tab po bid for 7 days 14 capsule 5 Active ibuprofen 400 MG tablet Take 1 tablet (400 mg) by mouth every 6 (six) hours if needed for moderate pain or fever for up to 30 doses. 30 tablet 5 Active ofloxacin (Floxin) 0.3 % otic solution Administer 10 drops into the left ear Once per day for 7 days. 10 mL 1 5 04/16/20 25 Active amoxicillin-clav ulanate XR (Augmentin XR) 1000-62.5 MG 12 hr tablet Take 2 tablets by mouth 2 times daily for 10 days. 40 tablet 04/19/20 25 Active Active Problems Problem Noted Date Diagnosed [...] to 6 weeks Diminished hearing, left 10/23/2024 Assessment & Plan (04/03/2025 11:19 AM EDT): Recent Hx of ear pain and hearing loss. 10/23/24 and 03/27/25 referred to ENT. Per RN note 03/26/25 after speaking with ENT office, recommended if pt needs a sooner appt. To go to [place] or [place]. Scheduled for September 2025. Perforated left TM on exam 04/03/25. Awaiting referral to [facility], willing to drive. -replaced referral to ENT 04/03/25 Orders: Referral to ENT; Future Ringing in ear, left 10/23/2024 Assessment & Plan (04/03/2025 11:19 AM EDT): Recent Hx of ear pain and hearing loss. 10/23/24 and 03/27/25 referred to ENT. Per RN note 03/26/25 after speaking with ENT office, recommended if pt needs a sooner appt. To go to [place] or [place]. Scheduled for September 2025. Perforated left TM on exam 04/03/25. Awaiting referral to [facility], willing to drive. -replaced referral to ENT 04/03/25 Orders: Referral to ENT; Future Acute otitis media 10/23/2024 Encounter for preventive [...] Encounters Date Type Department Care Team Description 04/09/2025 10:20 AM EDT Office Visit [facility] [address] [place] [address] Zack Ornelas MD Acute suppurative otitis media of left ear with spontaneous rupture of tympanic membrane, recurrence not specified (Primary Dx) 04/09/2025 Travel 04/08/[address] [address] Dior Saunders MD 04/03/2025 10:20 AM EDT Office Visit [facility] [address] [address] Gisella Blackwood MD Perforated tympanic membrane, left (Primary Dx); Diminished hearing, left; Ringing in ear, left; Left ear pain 04/03/2025 Orders Only [facility] [address] [address] Gisella Blackwood MD 04/03/2025 Travel 03/27/2025 Orders Only [address] [address] Dior Saunders MD Diminished hearing, left (Primary Dx); Ringing in ear, left 03/26/2025 Telephone [address] [place] [address] Dior Saunders MD call back needed 03/17/2025 Telephone [facility] [address], [place] [phone] Dior Saunders MD Referral 03/03/2025 Telephone [facility] [address] [place] [address] Dior Saunders MD Results from Last 3 Months Immunizations Immunization Administration [...] (276 lb) 04/09/2025 10:58 AM EDT Height 186 cm (6' 1.23 ) 10/23/2024 11:20 AM EDT Body Mass Index 36.19 10/23/2024 11:20 AM EDT Plan of Treatment [...] series) 06/04/2018 12/02/2017 COVID-19 Vaccine (3 - 2024-2 6 season) 2025 11/28/2020, 11/07/2020 Influenza Vaccine (#1) 2025 , 05/22/2020 Alcohol/Substance Use Screening 04/15/2025 04/15/2024 Depression Screening 04/15/2025 04/15/2024, 04/15/2024 SDOH Screening 10/16/2025 10/16/2024 Tobacco Screening 04/09/2026 04/09/2025 Lipid Panel 06/05/2029 06/05/2024, 11/29/2021, 04/10/2020 Zoster [...] AM EST) Hepatitis C Antibody Nonreactive Nonreactive [facility] Comment:Antibodies to HCV no t detected; does not exclude early acuteHCV infection. Blood Venous blood specimen / Unknown 06/05/2024 9:15 AM EST 06/05/2024 10:46 AM EST Dior Raza MD LAB BLOOD ORDERABLES Final Result [facility] [address] [place] [address] [phone] * HIV-1/2 Antigen and Antibodies, Fourth Generation, with Reflexes (06/05/2024 9:15 AM EST) HIV AB/AG Nonreactive Nonreactive [facility] Comment:HIV-1 p24 Ag and/or HIV-1/HIV-2 Ab not detected.A test result that is nonreactive does not exclude thepossibility of exposure to or infection with HIV-1 and/orHIV-2. Nonreactive results in this assay for individualswith prior exposure to HIV-1 and/or HIV-2 may be due toantigen and antibody levels that are below the limit ofdetection of this assay.The [employer] HIV Ag/Ab Combo assay result andsupplemental assay results should be interpreted inconjunction with the patient's clinical presentation,history and other laboratory results. If the results areinconsistent with clinical evidence, additional testing issuggested to confirm the result. Blood Venous blood specimen / Unknown 06/05/2024 9:15 AM EST 06/05/2024 10:46 AM EST us Dior Raza MD LAB BLOOD ORDERABLES Final Result Performing Organization Address [facility]/ZIP Co de Phone Number [facility] [address] [place] [address] [phone] * (ABNORMAL) Lipid Panel, Standard (06/05/2024 9:15 AM EST) Triglycerides 106 <150 mg/dL [facility] Comment:Desirable Triglyceri de: less than 150 mg/dLBorderline High Triglyceride 150-199 mg/dLHigh Triglyceride: 200-499 mg/dLVery High Triglyceride: greater than or equal to 5OO mg/dL Cholesterol 177 <200 mg/dL [facility] Comment:Desirable Cholestero l: less than 200 mg/dLBorderline High Cholesterol: 200-239 mg/dLHigh Cholesterol: greater than 239 mg/dL LDL Cholesterol Calculated 107(H) <100 mg/dL [facility] Comment:Desirable LDL: less than 100 mg/dLNear Optimal/Above Optimal LDL: 110- 129 mg/dLBorderline High LDL: 130-159 mg/dLHigh LDL: 160-189 mg/dLVery High LDL: greater than or equal to 190 mg/dL HDL Cholesterol 49 >40 mg/dL [facility] Comment:Desirable HDL: great er than 40 mg/dL Note: This HDL assay may give artificially low results in patients with liver disease. Blood Venous blood specimen / Unknown 06/05/2024 9:15 AM EST 06/05/2024 10:46 AM EST Dior Raza MD LAB BLOOD ORDERABLES Final Result [facility] [address] [place] [address] [phone] from Last 3 Months or Most Recently Relevant to Health Maintenance Insurance [employer] Care Teams Licensed Loan Officer Relationship Specialty Start Date End Date Dior Saunders MD [address] [place] [address] PCP - General Family Medicine 04/08/20
--- OUTSIDE RECORDS SUMMARY | 2025-04-09 19:26 | XMS_ITS | Clinical Summary ---
Author Organization [facility] Address [address] [place] [address] Care Team Providers Care Calciner Feeder Name Role Phone Pcp, No Primary Care [...] (1 - 3-dose SCD M series) 2007 Influenza Vaccine 02/21/2025 COVID-19 Vaccine ( - 2023-2 5 season) 2025 Pneumococcal Vaccine: Pediat aquiles (0-5 Years) and At-Risk Patients (6 to 49 Years) Aged Out No longer eligible b ased on patient's age to complete this topic Insurance [facility] STATE - PPO Care Teams Calciner Feeder Relationship Specialty Start Date End Date Pcp, No PCP - General General Medicine 02/09/22
--- OUTSIDE RECORDS SUMMARY | 2025-04-09 19:26 | XMS_ITS | Clinical Summary ---
Author Organization [facility] Address [address] [place] [address] Phone Care Team Providers Care Traffic Inspector Name Role Phone Jonatan Verma MD Primary Care Provider [phone] Allergies No known active allergies Medications fluticasone (FLOVENT DISKUS) 100 mcg/actuation DsDv Active albuterol 90 mcg/actuation inhaler Active albuterol 90 mcg/actuation inhaler Inhale 2 puffs into the lungs every 4 (four) hours as needed for wheezing. 1 Inhaler 3 09/04/2019 Active predniSONE (DELTASONE) 50 MG tablet Take 1 tablet (50 mg total) by mouth daily with breakfast. 5 tablet 09/04/2019 Active Active Problems No known active problems Social History Tobacco Use Types Packs/Day Years Used Date Smoking Tobacco: Former Smokeless Tobacco: Never Alcohol Use Standard Drinks/Week Comments Yes 0 (1 standard drink = 0.6 oz pur e alcohol) occasional Education Answer Date Recorded Are you interested in more education? Not on cecile e 11/18/2022 Are you concerned about learning? Not on file 11/18/2022 No 11/18/2022 No 11/18/2022 Digital Access Answer Date Recorded No 12/16/2022 No 12/16/2022 No 12/16/2022 Reliable internet access at home? Not on file 12/16/2022 Device with a working camera? Not on file Sex and Gender Information Value Date Recorded Sex Assigned at Male 09/04/2019 3:05 AM EST Legal Sex Male 9:22 PM EDT Gender Identity Male 09/04/2019 3:05 AM EST Sexual Orientation Straight 09/04/2019 3: 05 AM EST Last Filed Vital Signs Vital Sign Reading Time Taken Comments Blood Pressure 136/86 09/04/2019 5:51 AM EST Pulse 78 09/04/2019 5:51 AM EST Temperature 36.8 C (98.2 F) 09/04/2019 5:51 AM EST Respiratory Rate 18 09/04/2019 5:51 AM EST Oxygen Saturation 98% 09/04/2019 5:51 AM EST Inhaled Oxygen Concentration - - Weight 117.9 kg (260 lb) 09/04/2019 2:58 AM EST Height 177.8 cm (5' 10 ) 12/05/2017 5:58 PM EDT Body Mass Index 37.31 12/05/2017 5:58 PM EDT Plan of Treatment Health Maintenance Due Date Last Done Comments Adult Td,Tdap Booster 1980 LIPID PANEL 1980 DEPRESSION SCREENING 1992 SMOKING Hx and SMOKELESS TOBACCO SCREENING 1993 HEPATITIS C SCREENING 1998 HIV ONE-TIME SCREENING (18-6 5 YEARS) 1998 INFLUENZA VACCINE (#1) 2025 05/22/2020 COVID-19 VACCINE (3 2024-2 6 season) 2025 11/28/2020, 11/07/2020 HEPATITIS A VACCINES Aged Out 12/02/2017 No long er eligible based on patient's age to complete this topic HIB VACCINES Aged Out No longer eligi ble based on patient's age to complete this topic MENINGOCOCCAL VACCINES (ACWY) Aged Out No longer eligible based on patient's age to complete this topic MENINGOCOCCAL VACCINES (B) Aged Out N o longer eligible based on patient's age to complete this topic PNEUMOCOCCAL VACCINES (0-49 years) Aged Out No longer eligible b ased on patient's age to complete this topic Medical Devices Not on file Insurance [employer] NET PARTIAL Member Subscriber Plan / Payer (Ef fective 2017-Present) Name:Lita Pelaez Relation to Subscriber:Self Name:LITA PELAEZ Payer ID:Not on file Group ID:Not on file Type:Medicaid Address: [address] HMO POS [employer] NET PARTIAL Member Subscriber Plan / Payer ( fective 2017-Present) Name:Lita Pelaez Relation to Subscriber:Self Name:LITA PELAEZ Payer ID:Not on file Group ID:Not on file Type:Medicaid Address: [address] HMO POS [employer] S[employer] NET PARTIAL Member Subscriber Plan / Payer (Ef fective 2017-Present) Name:Lita Pelaez Relation to Subscriber:Self Name:LITA PELAEZ Payer ID:Not on file Group ID:Not on file Type:Medicaid Address: [address] HMO POS [facility] SAFETY NET PARTIAL Member Subscriber Plan / Payer (Ef fective 2017-Present) Name:Lita Pelaez Relation to Subscriber:Self Name:LITA PELAEZ Payer ID:Not on file Group ID:Not on file Type:Medicaid Address: [address] HMO POS [employer] NET PARTIAL Member Subscriber Plan / Payer (Ef fective 2017-Present) Name:Lita Pelaez Relation to Subscriber:Self Name:LITA PELAEZ Payer ID:Not on file Group ID:Not on file Type:Medicaid Address: [address] HMO POS [employer] NET PARTIAL Member Subscriber Plan / Payer (Ef fective 2017-Present) Name:Lita Pelaez Relation to Subscriber:Self Name:LITA PELAEZ Payer ID:Not on file Group ID:Not on file Type:Medicaid Address: [address] HMO POS [employer] NET PARTIAL Member Subscriber Plan / Payer (Ef fective 2017-Present) Name:Lita Pelaez Relation to Subscriber:Self Name:ROGERChulaGLORIAANGELIQUE Payer ID:Not on file Group ID:Not on file Type:Medicaid [address] [facility] SAFETY NET PARTIAL Member Subscriber Plan / Payer (Ef fective 2017-Present) Name:Heriberto Gloriaangelique Relation to Subscriber:Self Name:LITA PELAEZ Payer ID:Not on file Group ID:Not on file Type:Medicaid Address: [address] [facility] NET PARTIAL Member Subscriber Plan / Payer (Ef fective 2017-Present) Name:Lita Pelaez Relation to Subscriber:Self Name:LITA PELAEZ Payer ID:Not on file Group ID:Not on file Type:Medicaid Address: [address] Care Teams Traffic Inspector Relationship Specialty [place] [address] [place] [address] [place] [address] PCP - General Internal Medicine 07/25/17 Additional Source Comments The information contained in this document represents components of the legal health record. It is not the complete legal health record.[facility]
--- OUTSIDE RECORDS SUMMARY | 2025-04-09 19:26 | XMS_ITS | Clinical Summary ---
Author Organization [facility] Address [address] [place] [address] Care Team Providers Care Investment Associate Name Role Phone Ulises Platt Primary Care Provider [phone] Source Comments PLEASE NOTE, if this patient [...] nasal sprayIndications: Expiratory wheezing,Common cold Place 1 [place] into the nostril(s) as needed for congestion. 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 ESTIMATED AVERAGE GLUCOSE 117 mg/dL [facility] Blood specimen (specimen) Blood / Unknown 04/29/2016 4:15 PM EDT 04/29/2016 4:21 PM EDT Narrative [facility] - 04/29/2016 9:04 PM EDT [employer] [address] [place] [address] PT ID [id number] ORD# [id number] us Jacqui Cornejo DNP LAB - BLOOD DRAW Final Resu lt [facility] [address] [place] [address], [place] [phone] * (ABNORMAL) LIPID PANEL (10/28/2014 10:00 AM EDT) CHOLESTEROL 151 0 - 200 mg/dL [facility] TRIGLYCERIDES 97 0 - 150 mg/dL [facility] HDL CHOLESTEROL 34(L) >40 mg/dL [facility] LDL CALCULATED 98 0 - 100 mg/dL [facility] TC-HDLC RATIO 4.4 0 - 4.4 mg/dL [facility] Blood specimen (specimen) Blood / Unknown 10/28/2014 10:00 AM EDT 10/28/2014 10:00 AM EDT Narrative [facility] - 10/28/2014 4:57 PM EDT [address] [address] PT ID [id number] ORD# [id number] Jacqui Cornejo DNP LAB - BLOOD DRAW Edited Res ult - Final Performing Organization Address City/[facility]/ZIP Co de Phone Number [facility] [address] [place] [address], [place] [phone] from Last 3 Months or Most Recently Relevant to Health Maintenance Insurance [place] [facility] Care Teams Investment Associate Relationship Specialty Start Date End Date Ulises Platt PA [address] [place] [address] PCP - General Internal Medicine 06/01/17
--- OUTSIDE RECORDS SUMMARY | 2025-04-09 19:27 | XMS_ITS | Encounter Summary ---
Author Organization [employer] Address [address] [place] [address] [address] [place] [address] Care Team Providers Care Farm Management Professor Name Role Phone Dior Saunders MD Primary Care Provide r Reason for Visit * Reason Onset Date Comments Referral 03/17/2025 Encounter Details Date Type Department Care Team ([facility] st Contact Info) Description 03/17/2025 Telephone [facility] [address] [place], [place] [phone] Dior Saunders MD [address] [place] [address] Referral Social History Tobacco Use Types Packs/Day Years Used Date Smoking Tobacco: Never Passive Smoke Exposure: Never Smokeless Tobacco: Never Alcohol Use Standard Drinks/Week Comments Never 0 [...] AM EDT documented as of this encounter Miscellaneous Notes * Telephone Encounter - Sai De Jesus - 03/17/2025 8:56 AM EDT Tc from pt calling in regards to ENT surgeons stating they're unable to see pt until september and pt would like to be referred to a different location to be seen much sooner. Please contact pt at [phone]. documented in this encounter Plan of Treatment Not on file documented as of this encounter Visit Diagnoses Not on filedocumented in this encounter Additional Health Concerns Assessment Noted Time PHQ-9 Depression Total Score: 0 04/15/20 24 9:15 AM EDT documented as of this encounter Care Teams Farm Management Professor Relationship Specialty Start Date End Date Dior Saunders MD [address] [place] [address] PCP - General Family Medicine 04/08/20 documented as of this encounter
--- OUTSIDE RECORDS SUMMARY | 2025-04-09 19:27 | XMS_ITS ---
Author Name [facility] Organization Unknown History of Medication Use Medication Directions Dispensed Refills Start Date End Date Stat us albuterol (PROVENTIL HFA; VENTOLIN HFA) 108 (90 Base) MCG/ACT inhaler active Problems Problem Status Onset Date Problem Type Date of Resoluti on Source Back pain, unspecified back location, unspecified back pain laterality, unspecified chronicity active EncounterDiagnosisAct CCT Encounters Encounter Type Encounter Reason Primary Diagnosis Location Date Ambulatory Dorsalgia, unspecified [place] 04/18/2022 Care Team Organization Name Specialty Phone Email Start Date End [place] NO PCP Primary Care 04/18/2022 04/18/2022 [facility] P[facility],No Primary Care 04/18/2022
--- OUTSIDE RECORDS SUMMARY | 2025-04-09 19:27 | XMS_ITS | Encounter Summary ---
Author Organization [employer] Address [address] [facility] [address]t [place] [address] Care Team Providers Care Software Tools Build Engineer Name Role Phone Dior Saunders MD Primary Care Provide r Encounter Details Date Type Department Care Team (Latest Contact Info) Description 04/09/2025 Travel Social History Tobacco Use Types Packs/Day Years [...] AM EDT documented as of this encounter Plan of Treatment Not on file documented as of this encounter Visit Diagnoses Not on filedocumented in this encounter Additional Health Concerns Assessment Noted Time PHQ-9 Depression Total Score: 0 04/15/20 24 9:15 AM EDT documented as of this encounter Care Teams Software Tools Build Engineer Relationship Specialty Start Date End Date Dior Saunders MD [address] [place] [address] PCP - General Family Medicine 04/08/20 documented as of this encounter
--- OUTSIDE RECORDS SUMMARY | 2025-04-09 19:27 | XMS_ITS | Encounter Summary ---
Author Organization [employer] Address [address] [facility] [address]t [place] [address] Care Team Providers Care Custom Shoe Designer And Maker Name Role Phone Dior Saunders MD Primary Care Provide r Encounter Details Date Type Department Care Team ([facility] st Contact Info) Description 04/03/2025 Orders Only [facility] [address] [place], [place] [phone] Gisella Blackwood MD [address] [place] [address] Social History Tobacco Use Types Packs/Day Years [...] documented as of this encounter Care Teams Custom Shoe Designer And Maker Relationship Specialty Start Date End Date Dior Saunders MD [address] [place] [address] PCP - General Family Medicine 04/08/20 documented as of this encounter
--- OUTSIDE RECORDS SUMMARY | 2025-04-09 19:27 | XMS_ITS | Encounter Summary ---
Author Organization [employer] Address [address] [facility] 7t [place] [address] Care Team Providers Care Production Pattern Maker Name Role Phone Dior Saunders MD Primary Care Provide r Encounter Details Date Type Department Care Team ([facility] st Contact Info) Description 04/08/2025 Telephone [facility] [address] [place], [place] [phone] Dior Saunders MD [address] [place], [place] [phone] Social History Tobacco Use Types Packs/Day Years [...] encounter Miscellaneous Notes * Telephone Encounter - Jenifer Redmond LPN - 04/08/2025 12:30 PM EDT Triage call in response to portal message. Patient with ongoing ear pain and discharge.Has been compliant with ABT as ordered on visit f 04/03/25. No noted improvement and did not sleep last night due to pain. Disposition reviewed and patient in agreement with plan. No PCP or Team appts. Available at time of call. [facility] hours and availability provided for patient evaluation. Triage nurse informed the patient may have a wait of 1-2 hours because Walk In Clinic may have delays due topatient volume or symptom acuity. Insurance verified as active. Protocol Used: Earache (Adult) Protocol-Based Disposition: See in Office or Video Visit Today or Tomorrow Positive Triage Questions: * All other earaches (Exceptions: Brief ear pain lasting less than 60 minutes, or earache occurringduring air travel.) * Patient wants to be seen * All higher-acuity triage questions were negative Care Advice Discussed: * Reasons To Call Back - You become worse documented in this encounter Plan of Treatment Not on file documented as of this encounter Visit Diagnoses Not on filedocumented in this encounter Additional Health Concerns Assessment Noted Time PHQ-9 Depression Total Score: 0 04/15/20 24 9:15 AM EDT documented as of this encounter Care Teams Production Pattern Maker Relationship Specialty Start Date End Date Dior Saunders MD [address] [place] [address] PCP - General Family Medicine 04/08/20 documented as of this encounter
== END 2025-04-09 17:24 | disposition home or self-care (01) ==
LOC: HO.HHCLNP 17:23
PROVIDERS: Visit Provider Emergency Medicine
DX: H66.012 Acute suppurative otitis media with spontaneous rupture of ear drum, left ear (principal)
CPT/HCPCS: 87070; 87205

== ENCOUNTER 2025-07-10 08:10 | Outpatient (REF) | payer MEDICAID, SELFPAY ==
--- NOTE | ~2025-07-10 | XR_ITS ---
EXAMINATION: XR CHEST CLINICAL INFORMATION: positive TB test COMPARISON: May 26, 2020 TECHNIQUE: PA and lateral views. FINDINGS: No hyperinflation. No consolidation, pleural effusion or pneumothorax. Cardiomediastinal silhouette size is normal. Questionable 2 mm calcified pulmonary nodule, left lung. Osseous structures are intact. XR/XR chest 2V IMPRESSION: Questionable 2 mm granuloma, left lung. No acute airspace disease. Electronically signed by: Mark Gage MD 07/10/2025 08:46 AM EST
--- OUTSIDE RECORDS SUMMARY | 2025-07-10 08:20 | XMS_ITS | Clinical Summary ---
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 05/02/2025 Tonsillar hypertrophy 05/02/2025 Encounters Date Type Department Care Team Description 06/18/2025 myChart Message [facility] Operating Room [address] [place] [address] Mychart, Generic Provider Questionnaire Submission 06/12/2025 2:15 PM EST - 06/12/2025 11:59 PM EST Hospital Encounter [facility] [address] [place] [phone] Supervisor Publications: Remedios Davis MD Perforation of left tympanic membrane (Primary Dx) Discharge Disposition: Home or Self Care () 05/02/2025 11:12 AM EDT - 05/02/2025 11:59 PM EDT Hospital Encounter [facility] [address] [place] [phone] Supervisor Publications: Tony López MD Perforation of left tympanic membrane (Primary Dx); 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; Tonsillar hypertrophy Discharge Disposition: Home or Self Care (01) from Last 3 Months Social History Tobacco Use Types Packs/Day Years Used Date Smoking Tobacco: Never Assessed Sex and Gender Information Value Date Recorded Sex Assigned at Male 04/04/2025 9:00 AM EDT Legal Sex Male 8:58 AM EDT Gender Identity Male 04/04/2025 9:00 AM EDT Sexual Orientation Choose not to disclose 2024 12:43 PM EDT Plan of Treatment Upcoming Encounters Date Type Department Care Team (Latest Contact Info) Description 09/15/2025 8:00 AM EST Appointment [facility] [address] [place] [address] 3rd [place] [address] 10/03/2025 10:55 AM EDT Hospital Encounter [facility] Operating Room [address] [place] [address] Remedios Medrano MD [address] [place] [address] 10/03/2025 10:55 AM EDT - 10/03/2025 1:15 PM EDT Surgery [facility] Operating Room [address] [place] [address] Remedios Medrano MD [address] [place] [address] TYMPANOPLASTY WITH OSSICULAR CHAIN RECONSTRUCTION [44142 (CPT )] 10/16/2025 8:30 AM EDT Appointment [facility] [address] [place] [phone] Supervisor Publications: Remedios Davis MD [address] [place] [phone] Scheduled Procedures Name Priority Associated Diagnoses Date/Ti me TYMPANOPLASTY WITH OSSICULAR CHAIN RECONSTRUCTION Perforation of left tympanic membrane 10/03/2025 10:55 AM EDT COSTOCHONDRAL CARTILAGE GRAFT Perforation of left tympanic membrane 10/03/2025 10:55 AM EDT SPLIT THICKNESS AUTOGRAFT, EACH ADDITIONAL 100 SQ CM OR LESS Perforation of left tympanic membrane 10/03/2025 10:55 AM EDT Health Maintenance Due Date Last Done Comments Cologuard 1980 Colon Cancer Screening 1980 Colonoscopy 1980 FOBT / Fit Test 1980 Sigmoidoscopy 1980 Varicella Vaccines (1 of 2 - 13+ 2-dose series) 1993 Hepatitis B Vaccines (1 of 3 - 19+ 3-dose series) 1999 Pneumococcal Vaccine: Pediat aquiles (0-5 Years) and At-Risk Patients (6-50 Years) (1 of 2 - PCV) 1999 DTaP,Tdap,and Td Vaccines (1 - Tdap) 2002 Alcohol/Substance Use Screening 07/24/2024 Depression Screening and Follow-Up 07/24/2024 Social Drivers of Health Annual Screening 07/24/2024 Influenza Vaccine (#1) 2025 04/18/2022, 2019 COVID-19 Vaccine (3 - season) 03/24/202502/2021, 11/07/2020 HIV Screening Completed 06/05/2024, 06/05/2024 Hepatitis C Screening Completed 06/05/2024 Goals Goal Patient Goal Type Associated Problems Recent Progress Patient-Stated? Author Autogenerat ed Goal Care Plan Autogenerated Problem No Ailyn Patria Additional Health Concerns Active Problems Noted Date Diagnosed Date Autogenerated Problem 06/18/2025 Insurance [facility] Care Teams Shift Superintendent Caustic Cresylate Relationship Specialty Start Date End Date Dior Saunders MD [address] [place] [phone] PCP - General Internal Medicine 04/04/25
--- OUTSIDE RECORDS SUMMARY | 2025-07-10 08:20 | XMS_ITS | Encounter Summary ---
Author Organization [facility] Address [address] [place] [address] Care Team Providers Care Lather Apprentice Name Role Phone Dior Saunders MD Primary Care Provider Encounter Details Date Type Department Care Team (Late st Contact Info) Description 06/18/2025 myChart Message [facility] Operating Room [address] [place] [phone] Mychart, Generic Provider [facility] [place] [address] Questionnaire Submission Social History Tobacco Use Types Packs/Day Years Used Date Smoking Tobacco: Never Assessed Sex and Gender Information Value Date Recorded Sex Assigned at Male 04/04/2025 9:00 AM EDT Legal Sex Male 8:58 AM EDT Gender Identity Male 04/04/2025 9:00 AM EDT Sexual Orientation Choose not to disclose 2024 12:43 PM EDT documented as of this encounter Plan of Treatment Upcoming Encounters Date Type Department Care Team (Latest Contact Info) Description 09/15/2025 8:00 AM EST Appointment [facility] [address] [place] [address] 3rd [place] [address] 10/03/2025 10:55 AM EDT Hospital Encounter [facility] Operating Room [address] [place] [address] Remedios Medrano MD [address] [place] [address] 10/03/2025 10:55 AM EDT - 10/03/2025 1:15 PM EDT Surgery [facility] Operating Room [address] [place] [address] Remedios Medrano MD [address] [place] [address] TYMPANOPLASTY WITH OSSICULAR CHAIN RECONSTRUCTION [02603 (CPT )] 10/16/2025 8:30 AM EDT Appointment [facility] [address] [place] [address] [phone] Batch Heat Treat Operator: Remedios Davis MD [address] [place] [address] [phone] Scheduled Procedures Name Priority Associated Diagnoses Date/Ti me TYMPANOPLASTY WITH OSSICULAR CHAIN RECONSTRUCTION Perforation of left tympanic membrane 10/03/2025 10:55 AM EDT COSTOCHONDRAL CARTILAGE GRAFT Perforation of left tympanic membrane 10/03/2025 10:55 AM EDT SPLIT THICKNESS AUTOGRAFT, EACH ADDITIONAL 100 SQ CM OR LESS Perforation of left tympanic membrane 10/03/2025 10:55 AM EDT documented as of this encounter Goals Goal Patient Goal Type Associated Problems Recent Progress Patient-Stated? Author Autogenerat ed Goal Care Plan Autogenerated Problem No Patria Robertson documented as of this encounter Visit Diagnoses Not on filedocumented in this encounter Additional Health Concerns Active Problems Noted Date Diagnosed Date Autogenerated Problem 06/18/2025 documented as of this encounter Care Teams Lather Apprentice Relationship Specialty Start Date End Date Dior Saunders MD [address] [place] [address] PCP - General Internal Medicine 04/04/25 documented as of this encounter
--- OUTSIDE RECORDS SUMMARY | 2025-07-10 08:21 | XMS_ITS | Clinical Summary ---
Author Organization [employer] Address [address] [place] [address] 7t [place] [address] Care Team Providers Care Cut Off Saw Set Up Operator Name Role Phone Dior Saunders MD Primary Care Provide r Allergies No known active allergies Medications phentermine 15 MG capsuleIndicatio ns:Class 2 severe obesity due to excess calories with serious comorbidity and body mass index (BMI) of 36.0 to 36.9 in adult Take 1 capsule (15 mg) by mouth before breakfast. 30 capsule 1 5 Active topiramate (Topamax) 25 MG tabletIndication s:Class 2 severe obesity due to excess calories with serious comorbidity and body mass index (BMI) of 36.0 to 36.9 in adult Take 1 tablet (25 mg) by mouth [...] to 30 doses. 30 tablet 5 Active Active Problems Problem Noted Date Diagnosed [...] TM on exam 04/03/25. Awaiting referral to [facility], willing to drive. -replaced referral to ENT 04/03/25 Orders: Referral to ENT; Future Ringing in ear, left 10/23/2024 Assessment & Plan (04/03/2025 11:19 AM EDT): Recent Hx of ear pain and hearing loss. 10/23/24 and 03/27/25 referred to ENT. Per RN note 03/26/25 after speaking with ENT office, recommended if pt needs a sooner appt. To go to ass or CT. Scheduled for September 2025. Perforated left TM on exam 04/03/25. Awaiting referral to [facility], willing to drive. 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) 07/07/[address] [address] Sudha Howe RN Results from Last 3 Months Immunizations Immunization [...] Answer Date Recorded Internet Access Q1 Yes 04/20/2025 Internet Access Q2 Not on file 04/20/2025 Sex and Gender Information Value Date Recorded [...] 10/23/2024 11:20 AM EDT Plan of Treatment Upcoming Encounters Date Type Department Care Team (Late st Contact Info) Description 07/10/2025 10:00 AM EST Office Visit [facility]EDS [address] [place], [place] [phone] Camila Hirsch MD [address] [place] [address] Health Maintenance Due Date Last Done Comments CT Colonography 1980 Colonoscopy 1980 Colorectal Cancer Screening 1980 FIT DNA/Cologuard 1980 FIT 1980 FOBT 1980 Sigmoidoscopy 1980 Disability Screening 1980 Alcohol/Substance Use Screening 1992 Family Planning (PISQ) 1995 HPV Vaccines (1 [...] 11/07/2020 Influenza Vaccine (#1) 2025 , 05/22/2020 Depression Screening 04/15/2025 04/15/2024, 04/15/2024 SDOH Screening [...] AM EST) Hepatitis C Antibody Nonreactive Nonreactive [facility] Comment:Antibodies to HCV no t detected; does not exclude early acuteHCV infection. Blood Venous blood specimen / Unknown 06/05/2024 9:15 AM EST 06/05/2024 10:46 AM EST us Dior Raza MD LAB BLOOD ORDERABLES Final Result [facility] [address] [place] [phone] * HIV-1/2 Antigen and Antibodies, Fourth Generation, with Reflexes (06/05/2024 9:15 AM EST) HIV AB/AG Nonreactive Nonreactive [facility] Comment:HIV-1 p24 Ag and/or HIV-1/HIV-2 Ab not detected.A test result that is nonreactive does not exclude thepossibility of exposure to or infection with HIV-1 and/orHIV-2. Nonreactive results in this assay for individualswith prior exposure to HIV-1 and/or HIV-2 may be due toantigen and antibody levels that are below the limit ofdetection of this assay.The [facility] HIV Ag/Ab Combo assay result andsupplemental assay results should be interpreted inconjunction with the patient's clinical presentation,history and other laboratory results. If the results areinconsistent with clinical evidence, additional testing issuggested to confirm the result. Blood Venous blood specimen / Unknown 06/05/2024 9:15 AM EST 06/05/2024 10:46 AM EST Dior Raza MD LAB BLOOD ORDERABLES Final Result Performing Organization Address [facility] Co de Phone Number [facility] [address] [place] [phone] * (ABNORMAL) Lipid Panel, Standard (06/05/2024 9:15 AM EST) Triglycerides 106 <150 mg/dL [facility] Comment:Desirable Triglyceri de: less than 150 mg/dLBorderline High Triglyceride 150-199 mg/dLHigh Triglyceride: 200-499 mg/dLVery High Triglyceride: greater than or equal to 5OO mg/dL Cholesterol 177 <200 mg/dL [facility] Comment:Desirable Cholestero l: less than 200 mg/dLBorderline High Cholesterol: 200-239 mg/dLHigh Cholesterol: greater than 239 mg/dL LDL Cholesterol Calculated 107(H) <100 mg/dL [facility] Comment:Desirable LDL: less than 100 mg/dLNear Optimal/Above Optimal LDL: 110- 129 mg/dLBorderline High LDL: 130-159 mg/dLHigh LDL: 160-189 mg/dLVery High LDL: greater than or equal to 190 mg/dL HDL Cholesterol 49 >40 mg/dL [facility] Comment:Desirable HDL: great er than 40 mg/dL Note: This HDL assay may give artificially low results in patients with liver disease. Blood Venous blood specimen / Unknown 06/05/2024 9:15 AM EST 06/05/2024 10:46 AM EST us Dior Raza MD LAB BLOOD ORDERABLES Final Result Performing Organization Address [facility] Co de Phone Number [facility] [address] [place] [phone] from Last 3 Months or Most Recently Relevant to Health Maintenance Insurance [facility] C3 Care Teams Cut Off Saw Set Up Operator Relationship Specialty Start Date End Date Dior Saunders MD [address] [place] [phone] PCP - General Family Medicine 04/08/20
--- OUTSIDE RECORDS SUMMARY | 2025-07-10 08:21 | XMS_ITS | Clinical Summary ---
Author Organization [facility] Address [address] [place] [address] Care Team Providers Care Linen Room Supervisor Name Role Phone Pcp, No Primary Care [...] of 3 - 19+ 3-dose series) 1999 Influenza Vaccine 02/21/2025 COVID-19 Vaccine ( - 2024-2 6 season) 2025 Colonoscopy 2025 HPV Vaccines (No Doses Required) Completed Pneumococcal Vaccine: Pediat aquiles (0-5 Years) and At-Risk Patients (6 to 49 Years) Aged Out No longer eligible b ased on patient's age to complete this topic Insurance [facility] STATE - PPO Care Teams Linen Room Supervisor Relationship Specialty Start Date End Date Pcp, No PCP - General General Medicine 02/09/22
--- OUTSIDE RECORDS SUMMARY | 2025-07-10 08:21 | XMS_ITS | Encounter Summary ---
Author Organization [employer] Address [address] [place] [address] 7 [place] [address] Care Team Providers Care Brand Analyst Name Role Phone Dior Saunders MD Primary Care Provide r Reason for Visit * Reason Comments Pre-visit Planning SDOH screening compl eted on 10/16/2024 Encounter Details Date Type Department Care Team ([facility] st Contact Info) Description 07/09/2025 Patient Outreach [facility] MEDICINE [address] [place], [place] [phone] Dior Saunders MD [address] [place] [address] Pre-visit Planning (SDOH screening completed on 10/16/2024) Social History Tobacco Use Types Packs/Day Years [...] AM EDT documented as of this encounter Progress Notes * Aline Amador - 07/09/2025 10:22 AM EST CC Aline. Placed outbound call to patient to complete pre-visit planning. No answer at this time. Patient name and were not confirmed. CC left voicemail requesting return call. Direct contact information provided. documented in this encounter Plan of Treatment Upcoming Encounters Date Type Department Care Team ([facility] Contact Info) Description 07/10/2025 10:00 AM EST Office Visit [facility] MED [facility] PEDS [address] [place] [address] Camila Hirsch MD [address] [place] [address] documented as of this encounter Visit Diagnoses Not on filedocumented in this encounter Additional Health Concerns Assessment Noted Time PHQ-9 Depression Total Score: 0 04/15/20 24 9:15 AM EDT documented as of this encounter Care Teams Brand Analyst Relationship Specialty Start Date End Date Dior Saunders MD [address] [place] [address] PCP - General Family Medicine 04/08/20 documented as of this encounter
--- OUTSIDE RECORDS SUMMARY | 2025-07-10 08:21 | XMS_ITS | Encounter Summary ---
Author Organization [employer] Address [address] [place] [address] 7 [place] [address] Care Team Providers Care Computer Patternmaker Name Role Phone Dior Saunders MD Primary Care Provide r Reason for Visit * Reason Onset Date Comments Results 07/07/2025 Encounter Details Date Type Department Care Team ([facility] Contact Info) Description 07/07/2025 Telephone [facility] MED[facility] [address] [place], [place] [phone] Sudha Howe RN [address] [place] [address] Results Social History Tobacco Use Types Packs/Day Years [...] encounter Miscellaneous Notes * Telephone Encounter - Sudha Howe RN - 07/07/2025 4:01 PM EST TC placed to pt and advised of x-ray order. Pt. Will come to [facility] to get it done at earliest convenience. * Telephone Encounter - Sudha Howe RN - 07/07/2025 3:12 PM EST Pt. Presented to , had tuberculosis bloodwork done at an urgent care for work and which returned positive. No h/o testing in chart. Pt. Agrees to chest x-ray for next step in testing. Results are being scanned in to chart. Please place chest x-ray order if indicated for pt., thanks!! documented in this encounter Plan of Treatment Upcoming Encounters Date Type Department Care Team ([facility] st Contact Info) Description 07/10/2025 10:00 AM EST Office Visit [facility] MED [facility] PEDS [address] [place] [address] Camila Hirsch MD [address] [place], [place] [phone] documented as of this encounter Visit Diagnoses Not on filedocumented in this encounter Additional Health Concerns Assessment Noted Time PHQ-9 Depression Total Score: 0 04/15/20 24 9:15 AM EDT documented as of this encounter Care Teams Computer Patternmaker Relationship Specialty Start Date End Date Dior Saunders MD [address] [place] [address] PCP - General Family Medicine 04/08/20 documented as of this encounter
--- OUTSIDE RECORDS SUMMARY | 2025-07-10 08:23 | XMS_ITS | Encounter Summary ---
Author Organization [employer] Address [address] [facility] 7t [place] [address] Care Team Providers Care Retail Attendant Name Role Phone Dior Saunders MD Primary Care Provide r Encounter Details Date Type Department Care Team ([facility] st Contact Info) Description 04/03/2025 Orders Only [facility] [address] [place], [place] [phone] Gisella Blackwood MD [address] [place] [address] Social History Tobacco Use Types Packs/Day Years [...] [facility] [address] [place] [address] Camila Hirsch MD [address] [place] [address] documented as of this encounter Visit Diagnoses Not on filedocumented in this encounter Additional Health Concerns Assessment Noted Time PHQ-9 Depression Total Score: 0 04/15/20 24 9:15 AM EDT documented as of this encounter Care Teams Retail Attendant Relationship Specialty Start Date End Date Dior Saunders MD [address] [place] [address] PCP - General Family Medicine 04/08/20 documented as of this encounter
--- OUTSIDE RECORDS SUMMARY | 2025-07-10 08:23 | XMS_ITS | Encounter Summary ---
Author Organization [employer] Address [address] [place] [address] 7 [place] [address] Care Team Providers Care Tube Cleaning Operator Name Role Phone Dior Saunders MD Primary Care Provide r Reason for Visit * Reason Onset Date Comments Referral 03/17/2025 Encounter Details Date Type Department Care Team ([facility] st Contact Info) Description 03/17/2025 Telephone [facility] MEDICINE [address] [place], [place] [phone] Dior Saunders MD [address] [place] [address] Referral Social History Tobacco Use Types Packs/Day [...] seen much sooner. Please contact pt at [phone]. documented in this encounter Plan of Treatment Upcoming Encounters Date Type Department Care Team ([facility] st Contact Info) Description 07/10/2025 10:00 AM EST Office Visit [facility] MED & PEDS [address] [place] [address] Camila Hirsch MD [address] [place] [address] documented as of this encounter Visit Diagnoses Not on filedocumented in this encounter Additional Health Concerns Assessment Noted Time PHQ-9 Depression Total Score: 0 04/15/20 24 9:15 AM EDT documented as of this encounter Care Teams Tube Cleaning Operator Relationship Specialty Start Date End Date Dior Saunders MD [address] [place] [phone] PCP - General Family Medicine 04/08/20 documented as of this encounter
--- OUTSIDE RECORDS SUMMARY | 2025-07-10 08:23 | XMS_ITS | Encounter Summary ---
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) Social History Tobacco Use Types [...] Upcoming Encounters Date Type Department Care Team ([facility] st Contact Info) Description 07/10/2025 10:00 AM EST Office Visit [facility] MED & PEDS [address] [place] [address] Camila Hirsch MD [address] [place] [address] Scheduled Orders Name Type Priority Associated Diagnoses Orde r Schedule XR Chest 2 Views Imaging Routine Positive QuantiFERON-TB Gold test Expected: 07/07/2025, Expires: 07/07/2026 documented as of this encounter Visit Diagnoses Diagnosis Positive QuantiFERON-TB Gold test- Primary documented in this encounter Additional Health Concerns Assessment Noted Time PHQ-9 Depression Total Score: 0 04/15/20 24 9:15 AM EDT documented as of this encounter Care Teams Imaging Account Manager Relationship Specialty Start Date End Date Dior Saunders MD [address] [place] [phone] PCP - General Family Medicine 04/08/20 documented as of this encounter
== END 2025-07-10 08:11 | disposition home or self-care (01) ==
LOC: HO.HHCX 08:10
PROVIDERS: PCP Internal Medicine; Visit Provider Internal Medicine
DX: R76.12 Nonspecific reaction to cell mediated immunity measurement of gamma interferon antigen response without active tuberculosis (principal)
CPT/HCPCS: 71046

== ENCOUNTER → 2025-07-10 08:32 | Outpatient (BNV) | payer MEDICAID, SELFPAY | PROVIDERS: PCP Internal Medicine; Visit Provider Radiology Diagnostic Radiology | DX: R76.12 Nonspecific reaction to cell mediated immunity measurement of gamma interferon antigen response without active tuberculosis (principal) | CPT/HCPCS: 71046 ==